=== PATIENT | female | born 1955 | race Caucasian/White ===

== ENCOUNTER 2021-06-11 08:16 | Outpatient (RCR) | payer MEDICARE, MEDICAID, SELFPAY ==
--- NOTE | 2021-06-11 09:26 | PTOPEVAL ---
Thank you for referring Aye Ryder to [facility].? The patient is scheduled to be seen for therapy? __3__x/week for 12 visits. Please review, sign, date and return this plan of care MISBAH. I agree with and certify that the following plan of care is medically necessary. Referring Physician Date Admitting Provider: Attending Provider: Rupal Andrade Referring Provider: *PT Outpatient Evaluation Start: 06/11/21 08:31 Freq: Status: Active Protocol: Document 06/11/21 08:32 [facility] (Rec: 06/11/21 09:26 [facility] [email or web address]) Therapy Assessment Status Assessment Status Assessment Status Evaluation Evaluation Information Problem Diagnosis s/p left EBONI, left trochanteric bursitis Onset 10/18/20 Subjective Information Pt. reports that she underwent Query Text:As Reported By Patient/ left EBONI in October. She Family reports that she has been having pinpoint pain on the side of the left hip since surgery. She reports that she underwent injections that have given her a little relief . she states that pain is increased with walking and rolling onto her left side. She reports that she cannot sleep at night due to pain on the left hip. she reports her condition has worsened since undergoing surgery. She states that she was able to be on her feet for multiple hours before surgery and now can only walk for about 1 hour . She reports that her goal for therapy is to be able to walk for longer durations to complete tasks around her home and be able to go shopping. Prior Level of Function Activity Level (Last 3 Months) Occupation retired Hand Dominance Right Activity of Daily Living Ability Independent Indoor/Home Mobility Independent Community Mobility Independent Stairs Ability Independent Functional Cognition (Planning, Shopping Independent , Taking Medications) Cooking Yes Cleaning Yes Laundry Yes Shopping Yes Driving
--- NOTE | 2021-06-29 09:26 | PTOPEVAL ---
Thank you for referring Aye Ryder to [facility].? The patient is scheduled to be seen for therapy? ____x/week for ___ weeks. Please review, sign, date and return this plan of care MISBAH. I agree with and certify that the following plan of care is medically necessary. Referring Physician Date Admitting Provider: Attending Provider: Rupal Andrade Referring Provider: *PT Outpatient Evaluation Start: 06/11/21 08:31 Freq: Status: Active Protocol: Document 06/29/21 08:[address] [facility] (Rec: 06/29/21 09:[address] [facility] [email or web address]) Therapy Assessment Status Assessment Status Assessment Status Progress Evaluation Information Problem Diagnosis s/p left EBONI, left trochanteric bursitis Onset 10/18/20 Subjective Information patient reports she feels a Query Text:As Reported By Patient/ little better thus far with Family her therapy. she reports she still gets pain down the L LE, but reports she has noticed less pain with walking short distances. she reports longer time standing and longer distance walking skill bothers her. Pain Assessment Timing of Pain Assessment Timing of Pain Assessment Assessment Pain Scale Pain Scale Used Numeric (1 - 10) Self Report Pain Assessment Left Hip(s) Reported Pain Level 4 Pain Score Pain Score 4: Self Report Interventions Used Interventions Used By Clinicians Activity or ADL's,Education, Electrical Stimulation, Exercise,Heat Lower Extremity Range of Motion General Lower Extremity Range of Motion Gross Lower Extremity Range of Motion in supine 90 degrees hip Comments flexion, patient unable to achieve greater than 30 degrees hip ER of the L LE. in prone patient able to achieve 40 degrees hip ER of the L LE Lower Extremity Muscle Strength Testing General Lower Extremity Strength Gross Lower Extremity Strength -right hip flexion 4+/5 -left hip flexion 4/5 -right hip abduction 4+/5 -left hip abduction 4+/5 -bilateral knee extension 5/5 -bilateral knee flexion 5/5 -bilateral ankle dorsiflexion 5/5 Muscle Length Testing Muscle Length Testing Left Hamstring Length 25 Query Text:(90 - 90 Position) Palpation Asse
--- NOTE | 2021-07-05 10:52 | PTOPEVAL ---
Thank you for referring Aye Ryder to [facility] [place].? The patient is scheduled to be seen for therapy? ____x/week for ___ weeks. Please review, sign, date and return this plan of care MISBAH. I agree with and certify that the following plan of care is medically necessary. Referring Physician Date Admitting Provider: Attending Provider: Rupal Andrade Referring Provider: LONG Outpatient Evaluation Start: 06/11/21 08:31 Freq: Status: Active Protocol: Document 07/05/21 09:00 [facility] (Rec: 07/05/21 10:52 [facility] [email or web address]) Evaluation Information Problem Diagnosis s/p left EBONI, left trochanteric bursitis Onset 10/18/20 Subjective Information patient reports she is doing Query Text:As Reported By Patient/ better overall. she reports Family she still has lower back pain and pain down the L LE. however, her pain is less intense, and takes longer with activity to come on/increase. she reports traction has really helped to reduce her pain and symptoms. Pain Assessment Timing of Pain Assessment Timing of Pain Assessment Assessment Pain Scale Pain Scale Used Numeric (1 - 10) Self Report Pain Assessment Left Hip(s) Reported Pain Level 1 Greatest Pain Intensity 4 Pain Score Pain Score 1: Self Report Interventions Used Interventions Used By Clinicians Activity or ADL's,Education, Electrical Stimulation, Exercise,Heat,Manual Therapy Techniques,Traction Cervical and Lumbar ROM Lumbar ROM Lumbar Flexion Active Floor Query Text:Hands to: Lumbar Extension (0-40) 10 Query Text:Active in Degrees Lumbar Lateral Flexion Right (0-40) 40 Query Text:Active in Degrees Lumbar Lateral Flexion Left (0-40) 40 Query Text:Active in Degrees Lumbar Comments patient reports only increased pain in the lower back with lumbar arom extension Lower Extremity Muscle Strength Testing General Lower Extremity Strength Gross Lower Extremity Strength -right hip flexion 4+/5 -left hip flexion 4+/5 -right hip abduction 4+/5 -left hip abduction 4+/5 -bilateral knee extension 5/5 -bilateral knee flexion 5/5 -bilateral ankle dorsiflexion
--- NOTE | 2021-07-19 11:08 | PTOPEVAL ---
Thank you for referring Aye Ryder to [facility].? The patient is scheduled to be seen for therapy? ____x/week for ___ weeks. Please review, sign, date and return this plan of care MISBAH. I agree with and certify that the following plan of care is medically necessary. Referring Physician Date Admitting Provider: Attending Provider: Rupal Andrade Referring Provider: *PT Outpatient Evaluation Start: 06/11/21 08:31 Freq: Status: Active Protocol: Document 07/19/21 08:00 [facility] (Rec: 07/19/21 09:01 [facility] [id number]) Therapy Assessment Status Assessment Status Assessment Status Discharge Evaluation Information Problem Diagnosis s/p left EBONI, left trochanteric bursitis Onset 10/18/20 Subjective Information Pt reports that she feels Query Text:As Reported By Patient/ alot better since beginning Family therapy. She is happy with the progress she has made and is able to stand for as long as she would like without increases in pain. The only thing that she states that she struggles with is lifting her L leg as high as she would like, which she believes is due to being nervous about bending her L hip following her EBONI. Pain Assessment Timing of Pain Assessment Timing of Pain Assessment Pre-Treatment Self Report Self Report Pain Level 0 Pain Score Pain Score 0: Self Report Cervical and Lumbar ROM Lumbar ROM Lumbar Flexion Active Floor Query Text:Hands to: Lumbar Extension (0-40) 10 Query Text:Active in Degrees Lumbar Lateral Flexion Right (0-40) 40 Query Text:Active in Degrees Lumbar Lateral Flexion Left (0-40) 40 Query Text:Active in Degrees Lumbar Comments Pt reports decreased pain with lumbar extension compared to the IE Lower Extremity Muscle Strength Testing Hip Strength Right Hip Flexion Strength 4+ Good + Hip Abduction Strength 4 Good Left Hip Flexion Strength 5 Normal Hip Abduction Strength 4 Good Knee Strength Bilateral Knee Flexion Strength 5 Normal Knee Extension Strength 5 Normal Muscle Length Testing Muscle Length Testing Left Hamstring Length 20 Query Text:(90 - 90 Position) Right Hamstring Length 20 Query Text:(90 - 90 Position) Gait Assessment
== END 2021-07-19 10:23 | disposition home or self-care (01) ==
LOC: CHSPT 08:16
PROVIDERS: PCP Internal Medicine
DX: M70.62 Trochanteric bursitis, left hip (principal); Z96.642 Presence of left artificial hip joint
CPT/HCPCS: 97012; 97014; 97110; 97140; 97161; 97530; G0283

== ENCOUNTER 2023-04-01 08:17 | Outpatient (RCR) | payer MEDICARE, MEDICAID, SELFPAY ==
--- NOTE | 2023-04-01 09:17 | OPREHPOC ---
Outpatient Therapy Plan of Care This is a Multidisciplinary Plan of Care that may contain components documented by all disciplines (PT, OT, and ST.) PT Problem 1 PT Problem #1 Knowledge Deficit PT Goal 1 Goal 1. independent and compliant with HEP Target Visit 6 PT Problem 2 PT Problem #2 Pain PT Goal 1 Goal 1. patient to report no more than 3/10 pain with all activities Target Visit 12 PT Problem 3 PT Problem #3 Impaired Strength PT Goal 1 Goal 1. 4+/5 or better bilateral hip strength Target Visit 12 PT Problem 4 PT Problem #4 Impaired Gait PT Goal 1 Goal 1. patient to ambulate on level surfaces with normal gait mechanics and no AD. 2. patient to ambulate up and down steps with reciprocal pattern. Target Visit 12 PT Problem 5 PT Problem #5 Impaired Functional Mobil PT Goal 1 Goal 1. LEFS to display 30% or less functional deficits 2. patient to get in and out of a car with ease and no pain 3. patient to complete 6 minute walk test for 800ft or more without rest
--- NOTE | 2023-04-01 09:18 | PTOPEVAL1 ---
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 they eventually found it on mri. she then had repair of the tendon on 02/21/23. she reports she is no longer using a walker for ambulation. she reports she was told to keep the walker until she began therapy. she reports she has been without it today only. she was 50% WB on the L LE since surgery. today is the first day she is performing 100% weight bearing. she reports she would like to get back walking increased distance without pain, getting up and down without pain and with ease, in and out of a car with ease, and going up and down steps. she reports she continues to have pain in the L hip. she reports she has the greatest pain in the morning. Reported Pain Level Pain Score 4: Self Report Assessment PT Clinical Summary mrs. pearce is a 67 yo woman who presents to skilled PT services for evaluation and treatment of L hip weakness and decreased functional abilities following L gluteal tendon repair. she presents today with abnormal gait mechanics, pain, weakness, and decreased rom of the L hip. continued skilled PT is indicated to improve patients objective/functional deficits to return to her prior level functional activities to improve her quality of life. Plan of Care Interventions Electrical Stimulation,Gait Training,Hot Pack/Cold Pack,Manual Therapy,Neuro Re-education,Patient/ Caregiver Educati,Therapeutic Activities, Therapeutic Exercise PT Services Indicated Yes Treatment Frequency and 3x weekly for 12 visits Duration These treatments will address the objective and functional deficits as defined above. The patient will be advanced safely and appropriately in order for the patient to progress towards his/her prior level of function. Additional exercises will be introduced and as well as a comprehensive home exercise program upon discharge, if needed, ?to ensure carryover of functional gains achieved in the clinic. This treatment plan has been reviewed and agreement upon by the patient.
--- NOTE | 2023-04-17 07:20 | PCPTNOTE ---
patient cancelled due to sciatic pain
--- NOTE | 2023-04-24 08:59 | OPREHPOC ---
Outpatient Therapy Plan of Care This is a Multidisciplinary Plan of Care that may contain components documented by all disciplines (PT, OT, and ST.) PT Problem 1 PT Problem #1 Knowledge Deficit PT Goal 1 Goal 1. independent and compliant with HEP Target Visit 6 Progress Met PT Problem 2 PT Problem #2 Pain PT Goal 1 Goal 1. patient to report no more than 3/10 pain with all activities Target Visit 12 Progress Met PT Problem 3 PT Problem #3 Impaired Strength PT Goal 1 Goal 1. 4+/5 or better bilateral hip strength Target Visit 12 Progress Partially Met PT Problem 4 PT Problem #4 Impaired Gait PT Goal 1 Goal 1. patient to ambulate on level surfaces with normal gait mechanics and no AD. 2. patient to ambulate up and down steps with reciprocal pattern. Target Visit 12 Progress Partially Met PT Problem 5 PT Problem #5 Impaired Functional Mobil PT Goal 1 Goal 1. LEFS to display 30% or less functional deficits 2. patient to get in and out of a car with ease and no pain 3. patient to complete 6 minute walk test for 800ft or more without rest Target Visit 12
--- NOTE | 2023-04-24 08:59 | PTOPPROGNS ---
Assessment and note entered by JT File, PT Evaluation Information Assessment Status Progress Diagnosis gluteal tendon repair L LE Onset 02/21/23 Subjective Information patient reports she is doing better overall. she reports she has low pain. she reports she is more sore than painful in the L hip. Assessment PT Clinical Summary mrs. pearce presents to skilled PT for her 10th skilled therapy visit. as of this date, her therapy has consisted of exercises and activities for improve LE strength, improve ambulation mechanics, and improved balance/proprioception. she has made progress towards all goals, and already met several goals. she would benefit from continued skilled PT to address her remaining objective/functional deficits and achieve all goals. she displays improved gait mechanics now ambulating without any AD. she also displays improve L hip strength per MMT. Plan of Care Interventions Electrical Stimulation,Gait Training,Hot Pack/Cold Pack,Manual Therapy,Neuro Re-education,Patient/ Caregiver Educati,Therapeutic Activities, Therapeutic Exercise PT Services Indicated Yes Treatment Frequency and continue skilled PT per initial POC Duration These treatments will address the objective and functional deficits as defined above. The patient will be advanced safely and appropriately in order for the patient to progress towards his/her prior level of function. Additional exercises will be introduced and as well as a comprehensive home exercise program upon discharge, if needed, ?to ensure carryover of functional gains achieved in the clinic. This treatment plan has been reviewed and agreement upon by the patient.
--- NOTE | 2023-05-01 09:06 | OPREHPOC ---
Outpatient Therapy Plan of Care This is a Multidisciplinary Plan of Care that may contain components documented by all disciplines (PT, OT, and ST.) PT Problem 1 PT Problem #1 Knowledge Deficit PT Goal 1 Goal 1. independent and compliant with HEP. met Target Visit 6 Progress Met PT Problem 2 PT Problem #2 Pain PT Goal 1 Goal 1. patient to report no more than 3/10 pain with all activities. met Target Visit 12 Progress Met PT Problem 3 PT Problem #3 Impaired Strength PT Goal 1 Goal 1. 4+/5 or better bilateral hip strength. met Target Visit 12 Progress Met PT Problem 4 PT Problem #4 Impaired Gait PT Goal 1 Goal 1. patient to ambulate on level surfaces with normal gait mechanics and no AD. met 2. patient to ambulate up and down steps with reciprocal pattern. met Target Visit 12 Progress Met PT Problem 5 PT Problem #5 Impaired Functional Mobil PT Goal 1 Goal 1. LEFS to display 30% or less functional deficits . met 2. patient to get in and out of a car with ease and no pain. met 3. patient to complete 6 minute walk test for 800ft or more without rest. met Target Visit 12 Progress Met
--- NOTE | 2023-05-01 09:07 | PTOPDC ---
Assessment and note entered by JT File, PT Evaluation Information Assessment Status Discharge Diagnosis gluteal tendon repair L LE Onset 02/21/23 Subjective Information patient reports she feels great today. she reports she has no pain. she reports she has been compliant with her HEP. she reports she is ready to make today her last therapy session. Reported Pain Level Pain Score 0: Self Report Pain Score 0: Self Report Assessment PT Clinical Summary mrs. pearce presents to skilled PT services for her 12th skilled therapy visit. as of this date, she has met all goals for skilled PT. she is ambulating with normal speed and mechanics, and able to ambulate up and down steps with reciprocal mechanics without hand rail assist. she will DC skilled PT today and continue with HEP independent . Plan of Care PT Services Indicated Yes
== END 2023-05-01 15:21 | disposition home or self-care (01) ==
LOC: CHSPT 08:17
DX: Z48.89 Encounter for other specified surgical aftercare (principal); S76.012D Strain of muscle, fascia and tendon of left hip, subsequent encounter
CPT/HCPCS: 97110; 97112; 97161

== ENCOUNTER 2023-10-13 09:37 | Outpatient (RCR) | payer MEDICARE, MEDICAID, SELFPAY ==
--- NOTE | 2023-10-13 10:26 | PTOPEVAL1 ---
Assessment and note entered by Milton Irwin Evaluation Information Assessment Status Evaluation ICD-10 Condition Codes (PT) M54.16 Onset 09/19/23 Subjective Information Pt. reports that she has had pain radiating down the left leg for about 2 years. She reports that she constantly has pain, but intensity of pain can vary. She reports she was recently prescribed Gabapentin to help with sleep. She states that she has weakness in the left and states that getting up and down steps is difficult. She reports that she is helping with her 13 year old and 16 year old grandchildren, which keeps her very active. She reports difficulty with completing basic daily activities due to pain. She reports that she continue to complete light house and yard work despite her pain. She notices activities take much longer due to pain and weakness in the left leg. She reports she enjoys traveling, but cannot sit for long periods of time without increased pain. She reports that her goal is to reduce her back and left leg pain. Reported Pain Level Pain Score 3: Self Report Assessment PT Clinical Summary Pt. is a 68 year old female who enters the clinic with low back pain. She presents with impaired postural awareness, impaired hip and distal l.e. strength, impaired flexibility, impaired trunk mobility and functional decline. Continued skilled PT is indicated in order to improve these areas to allow for improved comfort with IADL performance. Plan of Care Interventions Electrical Stimulation,Gait Training,Hot Pack/Cold Pack,Manual Therapy,Mechanical Traction,Neuro Re- education,Paraffin Bath,Therapeutic Activities, Therapeutic Exercise PT Services Indicated Yes Treatment Frequency and 2x/week x 10 visits Duration These treatments will address the objective and functional deficits as defined above. The patient will be advanced safely and appropriately in order for the patient to progress towards his/her prior level of function. Additional exercises will be introduced and as well as a comprehensive home exercise program upon discharge, if needed, ?to ensure carryover of functional gains achieved in the clinic. This treatment plan has been reviewed and agreement upon by the patient.
--- NOTE | 2023-11-12 09:23 | OPREHPOC ---
Outpatient Therapy Plan of Care This is a Multidisciplinary Plan of Care that may contain components documented by all disciplines (PT, OT, and ST.) PT Problem 1 PT Problem #1 Knowledge Deficit PT Goal 1 Goal / Goal Update Pt. will be independent with a HEP addressing trunk mobility and core strength Target Visit 2 Progress Met PT Problem 2 PT Problem #2 Impaired Strength PT Goal 1 Goal / Goal Update Pt. will present with 4+/5 or greater left hip abduction and left ankle dorsiflexion strength to improve gait mechanics and standing endurance Target Visit 10 Progress Met PT Problem 3 PT Problem #3 Impaired Flexibility PT Goal 1 Goal / Goal Update Pt. will present at 10 degrees on right and left with the 90/90 test in order to improve postural awareness Target Visit 5 Progress Met PT Problem 5 PT Problem #5 Impaired Functional Mobil PT Goal 1 Goal / Goal Update Pt. will present with less than 20% limitation with the Oswestry indicating overall significant functional improvement. not met Pt. will be able to sleep all night without pain disturbance. met Target Visit 10 Progress Partially Met
--- NOTE | 2023-11-12 09:24 | PTOPDC ---
Assessment and note entered by JT File, PT Evaluation Information Assessment Status Discharge ICD-10 Condition Codes (PT) M54.16 Onset 09/19/23 Subjective Information patient reports she feels Alright today. she reports in regards to pain, her symptoms have not changed much. however, she reports feeling much stronger now. she reports she is doing better with ambulation up and down steps. she reports she has also noticed an improvement in her ability to perform light house and yard work. she reports it is still uncomfortable to sit on hard chairs/bar stools and travel for a long time in the car. she reports the pain in the back and the L LE has not changed since beginning therapy. patient reports she is sleeping through the night with the addition of her new meds. Reported Pain Level Pain Score 3: Self Report Pain Score 4: Self Report Assessment PT Clinical Summary mrs. pearce presents to skilled PT services for her 10th skilled PT visit today. she presents today having been compliant with her HEP and skilled PT visits. she has met all goals for skilled PT, except for her oswestry goal. she will DC skilled PT today, but was educated to continue with HEP independently at home. Plan of Care PT Services Indicated Yes
== END 2023-11-12 15:40 | disposition home or self-care (01) ==
LOC: CHSPT 09:37
DX: M54.16 Radiculopathy, lumbar region (principal)
CPT/HCPCS: 97014; 97110; 97140; 97161; 97530; G0283